=== PATIENT | male | born 1980 | race Caucasian/White ===

== ENCOUNTER 2020-02-18 22:31 | Emergency (ER) | payer OTHER ==
[~2020-02-18] VITALS: Ht 182.9 cm; Wt 74.5 kg
[2020-02-18 23:37] LABS: BASOPHILS % (AUTO) 0.8 % (0-1); EOSINOPHILS # (AUTO) 0.1 X10'3 (0-0.9); EOSINOPHILS % (AUTO) 2.1 % (0-6); HEMATOCRIT 47.4 % (42.0-52.0); HEMOGLOBIN 16.4 g/dl (14.0-17.9); LYMPHOCYTES # (AUTO) 2.5 X10'3 (1.1-4.8); LYMPHOCYTES % (AUTO) 43.7 % (21-51); MEAN CORPUSCULAR HEMOGLOBIN 34.5 PG (27.0-31.0); MEAN CORPUSCULAR HGB CONC 34.7 g/dL (33.0-36.5); MEAN CORPUSCULAR VOLUME 99.6 FL (78-98); MEAN PLATELET VOLUME 8.3 FL (7.4-10.4); MONOCYTES # (AUTO) 0.7 X10'3 (0-0.9); MONOCYTES % (AUTO) 12.4 % (2-12); NEUTROPHILS # (AUTO) 2.4 X10'3 (1.8-7.7); PLATELET COUNT 126 X10'3 (140-440); RED BLOOD COUNT 4.76 X10'6 (4.70-6.10); RED CELL DISTRIBUTION WIDTH 14.5 % (11.5-14.5); WHITE BLOOD COUNT 5.8 X10'3 (4.5-11.0)
[2020-02-18 23:53] LABS: ALANINE AMINOTRANSFERASE 210 U/L (12-78); ALBUMIN 3.9 G/DL (3.4-5.0); ALBUMIN/GLOBULIN RATIO 1.1 (1.1-1.5); ALKALINE PHOSPHATASE 117 IU/L (46-116); ANION GAP 13 (8-16); ASPARTATE AMINO TRANSFERASE 225 U/L (10-37); BILIRUBIN,TOTAL 0.4 MG/DL (0.1-1.0); BLOOD UREA NITROGEN 5 MG/DL (7-18); BUN/CREATININE RATIO 6.2 (5.4-32.0); CALCIUM 8.6 MG/DL (8.5-10.1); CHLORIDE 102 MMOL/L (99-107); CREATININE 0.81 MG/DL (0.60-1.10); GLUCOSE 92 MG/DL (70-104); LIPASE 762 U/L (73-393); POTASSIUM 3.9 MMOL/L (3.5-5.1); SODIUM 139 MMOL/L (135-145); TOTAL CARBON DIOXIDE 24.3 MMOL/L (24-32); TOTAL PROTEIN 7.5 G/DL (6.4-8.2); eGFR > 90 ML/MIN
[2020-02-19] MEDS ORDERED: nicotine 21mg patch - 24 hr TD ONE (00:10)
[2020-02-19 00:30] VITALS: BP 135/99
== END 2020-02-19 00:58 | disposition home or self-care (01) ==
LOC: ER 22:32
DX: R10.13 Epigastric pain (principal); F17.210 Nicotine dependence, cigarettes, uncomplicated; F10.10 Alcohol abuse, uncomplicated; Y90.9 Presence of alcohol in blood, level not specified
CPT/HCPCS: 36415; 80053; 83690; 85025; 99283

== ENCOUNTER 2020-05-04 18:32 | Emergency (ER) | payer MEDICAID ==
[~2020-05-04] VITALS: Ht 182.9 cm; Wt 68.2 kg
[2020-05-04 19:12] LABS: BASOPHILS % (AUTO) 0.2 % (0-1); EOSINOPHILS % (AUTO) 0.2 % (0-6); HEMATOCRIT 44.3 % (42.0-52.0); HEMOGLOBIN 15.2 g/dl (14.0-17.9); LYMPHOCYTES # (AUTO) 0.6 X10'3 (1.1-4.8); LYMPHOCYTES % (AUTO) 6.6 % (21-51); MEAN CORPUSCULAR HGB CONC 34.4 g/dL (33.0-36.5); MEAN CORPUSCULAR VOLUME 101.8 FL (78-98); MEAN PLATELET VOLUME 8.5 FL (7.4-10.4); MONOCYTES # (AUTO) 0.8 X10'3 (0-0.9); MONOCYTES % (AUTO) 8.4 % (2-12); NEUTROPHILS # (AUTO) 7.7 X10'3 (1.8-7.7); NEUTROPHILS % (AUTO) 84.6 % (42-75); PLATELET COUNT 134 X10'3 (140-440); RED BLOOD COUNT 4.35 X10'6 (4.70-6.10); RED CELL DISTRIBUTION WIDTH 14.5 % (11.5-14.5); WHITE BLOOD COUNT 9.1 X10'3 (4.5-11.0)
[2020-05-04 19:22] LABS: ALANINE AMINOTRANSFERASE 73 U/L (12-78); ALBUMIN 3.5 G/DL (3.4-5.0); ALBUMIN/GLOBULIN RATIO 0.9 (1.1-1.5); ALKALINE PHOSPHATASE 141 IU/L (46-116); ANION GAP 9 (8-16); ASPARTATE AMINO TRANSFERASE 75 U/L (10-37); BILIRUBIN,TOTAL 0.7 MG/DL (0.1-1.0); BLOOD UREA NITROGEN 5 MG/DL (7-18); BUN/CREATININE RATIO 4.8 (5.4-32.0); CALCIUM 8.5 MG/DL (8.5-10.1); CHLORIDE 96 MMOL/L (99-107); CREATININE 1.04 MG/DL (0.60-1.10); GLUCOSE 198 MG/DL (70-104); POTASSIUM 3.5 MMOL/L (3.5-5.1); SODIUM 134 MMOL/L (135-145); TOTAL CARBON DIOXIDE 28.9 MMOL/L (24-32); TOTAL PROTEIN 7.2 G/DL (6.4-8.2); eGFR 79 ML/MIN
[2020-05-04 19:47] LABS: LIPASE 2452 U/L (73-393)
[2020-05-04] MEDS ORDERED: normal saline 1000ML IV soln IVB ONE (19:55)
[2020-05-04] MEDS ORDERED: diphenhydrAMINE 50 mg/ml inj IV ONE (19:55)
[2020-05-04] MEDS ORDERED: mag hydrox/Alum hydrox/simeth 30ml oral suspension PO ONE (19:55)
[2020-05-04] MEDS ORDERED: metoclopramide 5 mg/ml inj IV ONE (19:55)
[2020-05-04] MEDS ORDERED: LIDOcaine Viscous 15ml cup MM ONE (19:55)
[2020-05-04] MEDS ORDERED: LORazepam 2 mg/ml vial ONE (20:58)
[2020-05-04] MEDS ORDERED: LORazepam 2 mg/ml vial IV ONE (21:00)
[2020-05-04] MEDS ORDERED: LORazepam 1 MG tablet PO ONE (22:05)
[2020-05-04] MEDS ORDERED: ONDA4TAB12 PO (22:09)
[2020-05-04] MEDS ORDERED: ACET-1 PO (22:09)
[2020-05-04] MEDS ORDERED: CHLO25CA10 PO (22:09)
[2020-05-04 22:16] LABS: CLARITY,URINE CLEAR (Clear); COLOR,URINE YELLOW (Yellow); GLUCOSE, URINE 500 mg/dl (Neg); KETONES,URINE NEGATIVE (Neg); LEUKOCYTE ESTERASE ,URINE NEGATIVE (Neg); NITRITES, URINE NEGATIVE (Neg); OCCULT BLOOD,URINE SMALL (Neg); PH,URINE 6.5 (4.8-8.0); PROTEIN,URINE 100 mg/dl (Neg); UROBILINOGEN,URINE 0.2 E.U/dL (0.2-1.0)
[2020-05-04 22:21] LABS: UA COLLECTION TYPE URINAL
[2020-05-04 22:22] LABS: BACTERIA,URINE FEW /HPF (Neg); MUCUS STRANDS MODERATE /LPF (Neg); SQUAMOUS EPITHELIAL CELL,UR FEW /LPF (FEW); WBC,URINE 0-4 /HPF (0-4)
[2020-05-04 23:16] VITALS: BP 167/102
== END 2020-05-04 23:20 | disposition home or self-care (01) ==
LOC: ER 18:32
DX: K85.90 Acute pancreatitis without necrosis or infection, unspecified (principal); F10.239 Alcohol dependence with withdrawal, unspecified; R56.9 Unspecified convulsions; F17.210 Nicotine dependence, cigarettes, uncomplicated; Z79.899 Other long term (current) drug therapy; Y90.0 Blood alcohol level of less than 20 mg/100 ml
CPT/HCPCS: 36415; 80053; 81001; 83690; 85025; 96361; 96374; 96375; 99284; J1200; J2060; J2765; J7030

== ENCOUNTER 2020-06-04 16:41 | Emergency (ER) | payer MEDICAID ==
[~2020-06-04] VITALS: Ht 182.9 cm; Wt 74.5 kg
[~2020-06-04 16:41] MED LIST: ACET-1 PO; CHLO25CA10 PO; ONDA4TAB12 PO
[2020-06-04 17:56] LABS: BASOPHILS % (AUTO) 0.3 % (0-1); EOSINOPHILS % (AUTO) 0 % (0-6); HEMATOCRIT 48.1 % (42.0-52.0); HEMOGLOBIN 16.2 g/dl (14.0-17.9); LYMPHOCYTES # (AUTO) 0.6 X10'3 (1.1-4.8); LYMPHOCYTES % (AUTO) 4.5 % (21-51); MEAN CORPUSCULAR HEMOGLOBIN 34.3 PG (27.0-31.0); MEAN CORPUSCULAR HGB CONC 33.6 g/dL (33.0-36.5); MEAN CORPUSCULAR VOLUME 102.1 FL (78-98); MEAN PLATELET VOLUME 8.8 FL (7.4-10.4); MONOCYTES # (AUTO) 0.7 X10'3 (0-0.9); MONOCYTES % (AUTO) 5.6 % (2-12); NEUTROPHILS # (AUTO) 11.7 X10'3 (1.8-7.7); NEUTROPHILS % (AUTO) 89.6 % (42-75); PLATELET COUNT 76 X10'3 (140-440); RED BLOOD COUNT 4.71 X10'6 (4.70-6.10); RED CELL DISTRIBUTION WIDTH 14.9 % (11.5-14.5)
[2020-06-04 18:25] LABS: ALANINE AMINOTRANSFERASE 67 U/L (12-78); ALBUMIN 3.8 G/DL (3.4-5.0); ALKALINE PHOSPHATASE 120 IU/L (46-116); AMYLASE 94 U/L (25-115); ANION GAP 10 (8-16); ASPARTATE AMINO TRANSFERASE 90 U/L (10-37); BLOOD UREA NITROGEN 6 MG/DL (7-18); BUN/CREATININE RATIO 7.1 (5.4-32.0); CALCIUM 8.4 MG/DL (8.5-10.1); CHLORIDE 98 MMOL/L (99-107); CREATININE 0.84 MG/DL (0.60-1.10); GLUCOSE 135 MG/DL (70-104); POTASSIUM 3.5 MMOL/L (3.5-5.1); SODIUM 135 MMOL/L (135-145); TOTAL PROTEIN 7.8 G/DL (6.4-8.2); eGFR > 90 ML/MIN
[2020-06-04] MEDS ORDERED: pantoprazole 40mg Tablet.DR PO ONE (18:45)
[2020-06-04] MEDS ORDERED: mag hydrox/Alum hydrox/simeth 30ml oral suspension PO ONE (18:45)
[2020-06-04] MEDS ORDERED: LIDOcaine Viscous 15ml cup MM ONE (18:45)
[2020-06-04] MEDS ORDERED: normal saline 1000ml 1,000 ML IV ONE ×2 (18:45)
[2020-06-04] MEDS ORDERED: ondansetron/PF 4mg/2ml inj IV ONE (18:45)
[2020-06-04] MEDS ORDERED: morphine 4 MG/ML inj SYRINge IV ONE (18:45)
[2020-06-04 18:50] LABS: ETHANOL < 0.010 GM/DL (0.0-0.010)
[2020-06-04 18:54] LABS: LIPASE 3067 U/L (73-393)
[2020-06-04] MEDS ORDERED: LORazepam 2 mg/ml vial IV ONE (19:50)
[2020-06-04] MEDS ORDERED: ketorolac tromethamine 15mg/ml inj. IV ONE (20:00)
[2020-06-04] MEDS ORDERED: ONDA4TAB6 PO (20:09)
[2020-06-04] MEDS ORDERED: FAMO-128 PO (20:09)
[2020-06-04] MEDS ORDERED: HYDR-4383 PO (20:09)
[2020-06-04 21:14] VITALS: BP 153/91
== END 2020-06-04 21:16 | disposition home or self-care (01) ==
LOC: ER 16:41
DX: F10.230 Alcohol dependence with withdrawal, uncomplicated (principal); K86.0 Alcohol-induced chronic pancreatitis; R10.84 Generalized abdominal pain; R11.2 Nausea with vomiting, unspecified; E86.0 Dehydration; Z72.89 Other problems related to lifestyle; Z79.899 Other long term (current) drug therapy; Y90.9 Presence of alcohol in blood, level not specified
CPT/HCPCS: 36415; 74176; 80053; 80320; 82150; 83690; 85025; 96361; 96374; 96375; 99284; J1885; J2060; J2270; J2405; J7030

== ENCOUNTER → 2021-06-01 | Emergency (ER) | payer MEDICAID, OTHER ==
[~2021-06-01] VITALS: Ht 182.9 cm; Wt 72.7 kg
[~2021-06-01] MED LIST changes: +FAMO-128 PO; +HYDR-4383 PO; +OMEP40CA21 PO; +ONDA4TAB6 PO; +SUCR1ORA12 PO; +mag hydrox/Alum hydrox/simeth 30ml oral suspension PO ONE; +pantoprazole 40mg Tablet.DR PO ONE; +sucralfate 1 gm tablet PO STA; +sucralfate 1gm/10ml UD suspension PO STA
[2021-06-01 13:00] VITALS: BP 166/121
== END | disposition home or self-care (01) ==
LOC: ER 12:43
DX: R10.13 Epigastric pain (principal); R11.0 Nausea; Z79.899 Other long term (current) drug therapy; Z72.89 Other problems related to lifestyle
CPT/HCPCS: 99284

== ENCOUNTER 2022-05-23 03:28 | Emergency (ER) | payer OTHER ==
[~2022-05-23] VITALS: Ht 182.9 cm; Wt 70.5 kg
[~2022-05-23 03:28] MED LIST changes: -OMEP40CA21 PO; -mag hydrox/Alum hydrox/simeth 30ml oral suspension PO ONE; -pantoprazole 40mg Tablet.DR PO ONE; -sucralfate 1 gm tablet PO STA; -sucralfate 1gm/10ml UD suspension PO STA
[2022-05-23] MEDS ORDERED: famotidine/PF 10 mg/ml inj IV ONE (03:50)
[2022-05-23] MEDS ORDERED: normal saline 1000ML IV soln IVB ONE (03:50)
[2022-05-23] MEDS ORDERED: mag hydrox/Alum hydrox/simeth 30ml oral suspension PO ONE (03:50)
[2022-05-23] MEDS ORDERED: LIDOcaine Viscous 15ml cup MM ONE (03:50)
[2022-05-23] MEDS ORDERED: ondansetron/PF 4mg/2ml inj IV ONE (03:50)
[2022-05-23] MEDS ORDERED: fentaNYL/PF 50MCG/1 ML 2ML syringe IV ONE (03:50)
[2022-05-23 04:47] LABS: BASOPHILS # (AUTO) 0.1 X10'3 (0-0.2); BASOPHILS % (AUTO) 0.8 % (0-1); EOSINOPHILS # (AUTO) 0.1 X10'3 (0-0.9); EOSINOPHILS % (AUTO) 0.7 % (0-6); HEMOGLOBIN 16.5 g/dl (14.0-17.9); LYMPHOCYTES # (AUTO) 0.9 X10'3 (1.1-4.8); LYMPHOCYTES % (AUTO) 8.1 % (21-51); MEAN CORPUSCULAR HEMOGLOBIN 33.6 PG (27.0-31.0); MEAN CORPUSCULAR HGB CONC 35.1 g/dL (33.0-36.5); MEAN CORPUSCULAR VOLUME 95.7 FL (78-98); MEAN PLATELET VOLUME 9.5 FL (7.4-10.4); MONOCYTES # (AUTO) 0.9 X10'3 (0-0.9); MONOCYTES % (AUTO) 8.5 % (2-12); NEUTROPHILS # (AUTO) 8.9 X10'3 (1.8-7.7); NEUTROPHILS % (AUTO) 81.9 % (42-75); PLATELET COUNT 107 X10'3 (140-440); RED BLOOD COUNT 4.91 X10'6 (4.70-6.10); RED CELL DISTRIBUTION WIDTH 14.5 % (11.5-14.5); WHITE BLOOD COUNT 10.8 X10'3 (4.5-11.0)
[2022-05-23 04:55] LABS: ALANINE AMINOTRANSFERASE 34 U/L (12-78); ALBUMIN 3.9 G/DL (3.4-5.0); ALKALINE PHOSPHATASE 118 IU/L (46-116); ANION GAP 13 (8-16); ASPARTATE AMINO TRANSFERASE 23 U/L (10-37); BILIRUBIN,TOTAL 0.7 MG/DL (0.1-1.0); BLOOD UREA NITROGEN 6 MG/DL (7-18); BUN/CREATININE RATIO 7.6 (5.4-32.0); CALCIUM 9.3 MG/DL (8.5-10.1); CHLORIDE 92 MMOL/L (99-107); CREATININE 0.79 MG/DL (0.60-1.10); GLUCOSE 153 MG/DL (70-104); POTASSIUM 3.3 MMOL/L (3.5-5.1); SODIUM 129 MMOL/L (135-145); TOTAL CARBON DIOXIDE 24.1 MMOL/L (24-32); TOTAL PROTEIN 7.8 G/DL (6.4-8.2); eGFR > 90 ML/MIN
[2022-05-23 04:58] LABS: LIPASE 578 U/L (73-393)
[2022-05-23] MEDS ORDERED: POTASSIUM BICARB 20meq eff tab 20 MEQ TABLET.EFF PO ONE (05:05)
[2022-05-23] MEDS ORDERED: HYDR-3965 PO (05:05)
[2022-05-23] MEDS ORDERED: HYDROcodone/acetaminophen 5mg/325mg tablet PO ONE (05:05)
[2022-05-23] MEDS ORDERED: proCHLORperazine 10 MG/2 ml inj IV ONE (05:10)
[2022-05-23] MEDS ORDERED: ONDA4TAB12 PO (05:10)
[2022-05-23] MEDS ORDERED: amLODIPine 5mg tablet PO ONE (05:55)
[2022-05-23] MEDS ORDERED: hydrALAZINE 20mg/ml inj. IV ONE (05:55)
[2022-05-23 06:36] VITALS: BP 158/109
--- NOTE | 2022-05-23 07:15 | NUR ---
Pt given and understands d/c instructions. IV d/c'd, catheter was intact. Ambulatory with a steady gait.
[2022-05-23 07:24] LABS: CLARITY,URINE CLEAR (Clear); COLOR,URINE YELLOW (Yellow); GLUCOSE, URINE NEGATIVE (Neg); KETONES,URINE >=80 mg/dl (Neg); LEUKOCYTE ESTERASE ,URINE NEGATIVE (Neg); NITRITES, URINE NEGATIVE (Neg); OCCULT BLOOD,URINE NEGATIVE (Neg); PROTEIN,URINE NEGATIVE (Neg); UROBILINOGEN,URINE 0.2 E.U/dL (0.2-1.0)
[2022-05-23 07:26] LABS: UA COLLECTION TYPE VOIDED
== END 2022-05-23 07:15 | disposition home or self-care (01) ==
LOC: ER 03:29
DX: K85.90 Acute pancreatitis without necrosis or infection, unspecified (principal)
CPT/HCPCS: 36415; 80053; 81003; 83690; 84484; 85025; 96361; 96374; 96375; 99285; J0360; J0780; J2405; J3010; J3490; J7030

== ENCOUNTER 2022-08-12 14:37 | Emergency (ER) | payer MEDICAID ==
[~2022-08-12] VITALS: Ht 182.9 cm; Wt 70.0 kg
[2022-08-12 14:59] LABS: BASOPHILS % (AUTO) 0.5 % (0-1); EOSINOPHILS # (AUTO) 0.1 X10'3 (0-0.9); EOSINOPHILS % (AUTO) 0.6 % (0-6); HEMATOCRIT 43.8 % (42.0-52.0); HEMOGLOBIN 14.8 g/dl (14.0-17.9); LYMPHOCYTES % (AUTO) 43.5 % (21-51); MEAN CORPUSCULAR HEMOGLOBIN 33.1 PG (27.0-31.0); MEAN CORPUSCULAR HGB CONC 33.9 g/dL (33.0-36.5); MEAN CORPUSCULAR VOLUME 97.8 FL (78-98); MEAN PLATELET VOLUME 8.5 FL (7.4-10.4); MONOCYTES # (AUTO) 0.9 X10'3 (0-0.9); MONOCYTES % (AUTO) 9.6 % (2-12); NEUTROPHILS # (AUTO) 4.2 X10'3 (1.8-7.7); NEUTROPHILS % (AUTO) 45.8 % (42-75); PLATELET COUNT 287 X10'3 (140-440); RED BLOOD COUNT 4.48 X10'6 (4.70-6.10); RED CELL DISTRIBUTION WIDTH 14.2 % (11.5-14.5); WHITE BLOOD COUNT 9.3 X10'3 (4.5-11.0)
[2022-08-12 15:02] VITALS: BP 97/55
[2022-08-12 15:19] LABS: ALANINE AMINOTRANSFERASE 44 U/L (12-78); ALBUMIN 3.8 G/DL (3.4-5.0); ALBUMIN/GLOBULIN RATIO 1.2 (1.1-1.5); ALKALINE PHOSPHATASE 71 IU/L (46-116); ANION GAP 8 (8-16); ASPARTATE AMINO TRANSFERASE 29 U/L (10-37); BILIRUBIN,TOTAL 0.2 MG/DL (0.1-1.0); BLOOD UREA NITROGEN 8 MG/DL (7-18); BUN/CREATININE RATIO 9.2 (5.4-32.0); CALCIUM 8.2 MG/DL (8.5-10.1); CHLORIDE 102 MMOL/L (99-107); CREATININE 0.87 MG/DL (0.60-1.10); GLUCOSE 139 MG/DL (70-104); POTASSIUM 3.8 MMOL/L (3.5-5.1); SODIUM 139 MMOL/L (135-145); eGFR > 90 ML/MIN
[2022-08-12 15:25] LABS: MAGNESIUM 2.4 MG/DL (1.5-2.4)
== END 2022-08-12 15:54 | disposition left against medical advice (07) ==
LOC: ER 14:38
DX: R07.89 Other chest pain (principal); Z53.21 Procedure and treatment not carried out due to patient leaving prior to being seen by health care provider
CPT/HCPCS: 36415; 71045; 80053; 83735; 83880; 84484; 85025; 93005

== ENCOUNTER 2023-04-12 04:25 | Emergency (ER) | payer MEDICAID ==
[~2023-04-12] VITALS: Ht 180.3 cm; Wt 68.6 kg
[2023-04-12] MEDS ORDERED: LIDOcaine Viscous 15ml cup TP ONE (05:20)
[2023-04-12] MEDS ORDERED: normal saline 1000ML IV soln IVB ONE (05:20)
[2023-04-12] MEDS ORDERED: ondansetron/PF 4mg/2ml inj IV ONE (05:20)
[2023-04-12] MEDS ORDERED: mag hydrox/Alum hydrox/simeth 30ml oral suspension PO ONE (05:20)
[2023-04-12] MEDS ORDERED: pantoprazole 40 MG vial IV ONE (05:20)
[2023-04-12] MEDS ORDERED: pantoprazole 40MG/NS 100ML BAG 100 ML IV ONE (05:25)
[2023-04-12 05:26] LABS: BASOPHILS % (AUTO) 0.5 % (0-1); EOSINOPHILS # (AUTO) 0.1 X10'3 (0-0.9); EOSINOPHILS % (AUTO) 1.2 % (0-6); HEMATOCRIT 46.7 % (42.0-52.0); HEMOGLOBIN 16.1 g/dl (14.0-17.9); LYMPHOCYTES # (AUTO) 1.7 X10'3 (1.1-4.8); LYMPHOCYTES % (AUTO) 27.6 % (21-51); MEAN CORPUSCULAR HEMOGLOBIN 35.1 PG (27.0-31.0); MEAN CORPUSCULAR HGB CONC 34.5 g/dL (33.0-36.5); MEAN CORPUSCULAR VOLUME 101.7 FL (78-98); MONOCYTES # (AUTO) 0.7 X10'3 (0-0.9); NEUTROPHILS # (AUTO) 3.7 X10'3 (1.8-7.7); NEUTROPHILS % (AUTO) 59.7 % (42-75); PLATELET COUNT 247 X10'3 (140-440); RED BLOOD COUNT 4.59 X10'6 (4.70-6.10); RED CELL DISTRIBUTION WIDTH 13.4 % (11.5-14.5); WHITE BLOOD COUNT 6.1 X10'3 (4.5-11.0)
[2023-04-12 06:26] LABS: ALANINE AMINOTRANSFERASE 41 U/L (12-78); ALBUMIN 3.4 G/DL (3.4-5.0); ALBUMIN/GLOBULIN RATIO 0.9 (1.1-1.5); ALKALINE PHOSPHATASE 104 IU/L (46-116); ANION GAP 11 (8-16); ASPARTATE AMINO TRANSFERASE 41 U/L (10-37); BILIRUBIN,TOTAL 0.2 MG/DL (0.1-1.0); BLOOD UREA NITROGEN 10 MG/DL (7-18); BUN/CREATININE RATIO 11.9 (10.0-20.0); CALCIUM 8.3 MG/DL (8.5-10.1); CHLORIDE 103 MMOL/L (99-107); CREATININE 0.84 MG/DL (0.60-1.10); ETHANOL 238 MG/DL (<10); GLUCOSE 140 MG/DL (70-104); LIPASE 665 U/L (73-393); POTASSIUM 3.8 MMOL/L (3.5-5.1); SODIUM 141 MMOL/L (135-145); TOTAL CARBON DIOXIDE 27.1 MMOL/L (24-32); eCRCL 110 ML/MIN; eGFR > 90 ML/MIN
--- NOTE | 2023-04-12 06:33 | NUR ---
RECIEVED REPORT FROM WALI VALLE ASSUMING CARE OF PT AOX4 C/O ABD PAIN RADIATING TO BACK MONITOR LEADS ON AND FUNCTIONING PROTONIX GTT COMPLETED NS BOLUS INFUSING AT PRESENT TIME
[2023-04-12] MEDS ORDERED: dicyclomine 10mg/ml 2ml ampule IM ONE (07:35)
[2023-04-12] MEDS ORDERED: ONDA4TAB12 PO (07:36)
[2023-04-12 07:49] VITALS: BP 152/93; PULSE 68; RESP 14; TEMP 97.9; O2SAT 98
== END 2023-04-12 07:54 | disposition home or self-care (01) ==
LOC: ER 04:26
DX: K86.0 Alcohol-induced chronic pancreatitis (principal); R19.7 Diarrhea, unspecified; F17.200 Nicotine dependence, unspecified, uncomplicated; Z79.899 Other long term (current) drug therapy
CPT/HCPCS: 36415; 71045; 80053; 80320; 83690; 85025; 96365; 96375; 99284; C9113; J2405; J7030